=== PATIENT | male | born 1995 | race Two or more races ===

== ENCOUNTER 2022-03-18 10:30 | Emergency (ER) | payer MEDICAID ==
[~2022-03-18] VITALS: Ht 170.2 cm; Wt 123.8 kg
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
--- NOTE | 2022-03-18 10:41 | NUR ---
DR VASQUEZ AT BEDSIDE
[2022-03-18] MEDS ORDERED: ONDANSETRON HCL/PF 4 MG/2 ML VIAL ONE ×2 (10:47→12:25)
[2022-03-18 10:59] LABS: BASOPHILS # (AUTO) 0.1 K/uL (0.0-0.2); BASOPHILS % (AUTO) 0.8 % (0.0-2.0); EOSINOPHILS % (AUTO) 2.7 % (0.0-6.0); HEMATOCRIT 42 % (39-51); HEMOGLOBIN 13.8 g/dL (13.5-17.5); LYMPHOCYTES # (AUTO) 2.7 K/uL (0.8-4.8); LYMPHOCYTES % (AUTO) 38.8 % (20.0-44.0); MEAN CORPUSCULAR HGB CONC 33 g/dl (31.0-36.0); MEAN CORPUSCULAR VOLUME 81 fL (80-96); MONOCYTES # (AUTO) 0.4 K/uL (0.1-1.30); NEUTROPHILS # (AUTO) 3.6 K/uL (1.8-8.9); NEUTROPHILS % (AUTO) 51.7 % (43.0-81.0); PLATELET COUNT (AUTO) 159 K/uL (150-450); RED BLOOD CELL COUNT(AUTO) 5.17 MIL/uL (4.5-6.0); WHITE BLOOD COUNT (AUTO) 6.9 K/uL (4.3-11.0)
[2022-03-18] MEDS ORDERED: ONDANSETRON HCL/PF 4 MG/2 ML VIAL IVP ONE (11:00)
[2022-03-18] MEDS ORDERED: IV NS 0.9% 1,000 ML BAG IV ONE (11:00)
[2022-03-18 11:16] LABS: ALBUMIN 3.3 g/dL (3.4-5.0); BILIRUBIN,DIRECT 0.1 mg/dL (0.0-0.2); BILIRUBIN,TOTAL 0.3 mg/dL (0.2-1.0); CALCIUM, SERUM 8.5 mg/dL (8.5-10.1); CREATININE 0.8 mg/dL (0.6-1.3); POTASSIUM 3.7 mmol/L (3.5-5.1); TOTAL PROTEIN, SERUM 6.9 g/dL (6.4-8.2)
[2022-03-18] MEDS ORDERED: ONDANSETRON HCL/PF - ER 4 MG/2 ML VIAL IV ONE (12:30)
[2022-03-18] MEDS ORDERED: ONDA4TAB5 PO (13:22)
--- NOTE | 2022-03-18 13:41 | NUR ---
IV removed. Catheter intact and site benign. Pressure and 4x4 applied to site. No bleeding noted.Patient discharged to home in stable condition. Written and verbal after care instructions given. Patient verbalizes understanding of instruction.
[2022-03-18 13:43] VITALS: BP 128/76
== END 2022-03-18 13:43 | disposition home or self-care (01) ==
LOC: ER 10:35
DX: R11.2 Nausea with vomiting, unspecified (principal); F17.200 Nicotine dependence, unspecified, uncomplicated; Z88.0 Allergy status to penicillin; Z60.2 Problems related to living alone
CPT/HCPCS: 99284; 96374; 96361; 96376; 85025; 80048; 83690; 80076; 36415; J2405 ×2; J7030

== ENCOUNTER 2022-03-19 18:53 | Emergency (ER) | payer MEDICAID ==
[~2022-03-19] VITALS: Ht 170.2 cm; Wt 123.8 kg
[~2022-03-19 18:53] MED LIST: ONDA4TAB5 PO
[2022-03-19] MEDS ORDERED: IV NS 0.9% 1,000 ML BAG IV ONE (19:30)
[2022-03-19] MEDS ORDERED: ONDANSETRON HCL/PF 4 MG/2 ML VIAL IVP ONE (19:30)
--- NOTE | 2022-03-19 19:59 | NUR ---
LAB AT BEDSIDE FOR BLOOD DRAW
[2022-03-19] MEDS ORDERED: ONDANSETRON HCL/PF 4 MG/2 ML VIAL ONE (20:14)
[2022-03-19 20:25] LABS: BASOPHILS # (AUTO) 0.1 K/uL (0.0-0.2); BASOPHILS % (AUTO) 0.6 % (0.0-2.0); HEMATOCRIT 43 % (39-51); HEMOGLOBIN 14.3 g/dL (13.5-17.5); LYMPHOCYTES # (AUTO) 3.3 K/uL (0.8-4.8); LYMPHOCYTES % (AUTO) 37.3 % (20.0-44.0); MEAN CORPUSCULAR HGB CONC 33 g/dl (31.0-36.0); MEAN CORPUSCULAR VOLUME 80 fL (80-96); MONOCYTES # (AUTO) 0.8 K/uL (0.1-1.30); MONOCYTES % (AUTO) 8.5 % (2.0-12.0); NEUTROPHILS # (AUTO) 4.6 K/uL (1.8-8.9); NEUTROPHILS % (AUTO) 51.6 % (43.0-81.0); PLATELET COUNT (AUTO) 177 K/uL (150-450); RED BLOOD CELL COUNT(AUTO) 5.41 MIL/uL (4.5-6.0)
[2022-03-19 20:37] LABS: CREATININE 0.9 mg/dL (0.6-1.3); POTASSIUM 3.9 mmol/L (3.5-5.1)
[2022-03-19 20:46] LABS: ALBUMIN 3.8 g/dL (3.4-5.0); BILIRUBIN,DIRECT 0.1 mg/dL (0.0-0.2); BILIRUBIN,TOTAL 0.2 mg/dL (0.2-1.0); TOTAL PROTEIN, SERUM 7.8 g/dL (6.4-8.2)
[2022-03-19 21:29] LABS: BILIRUBIN,URINE NEGATIVE (NEGATIVE); COLOR,URINE YELLOW (YELLOW); LEUKOCYTE ESTERASE ,URINE NEGATIVE (NEGATIVE); NITRITE, URINE NEGATIVE (NEGATIVE); PROTEIN,URINE NEGATIVE (NEGATIVE); UGLUCOSE NEGATIVE (NEGATIVE); UROBILINOGEN,URINE 0.2 EU/dL (0.2)
[2022-03-19 22:44] VITALS: BP 118/77
--- NOTE | 2022-03-19 22:44 | NUR ---
Patient discharged to home in stable condition. Written and verbal after care instructions given. Patient verbalizes understanding of instruction.IV removed. Catheter intact and site benign. Pressure and 4x4 applied to site. No bleeding noted.
== END 2022-03-19 22:44 | disposition home or self-care (01) ==
LOC: ER 18:56
DX: R10.9 Unspecified abdominal pain (principal); R11.2 Nausea with vomiting, unspecified; R19.7 Diarrhea, unspecified; F17.200 Nicotine dependence, unspecified, uncomplicated; Z88.0 Allergy status to penicillin; Z60.2 Problems related to living alone; Z79.899 Other long term (current) drug therapy
CPT/HCPCS: 99283; 96374; 96361; 85025; 80048; 83690; 80076; 81003; 36415; J2405; J7030

== ENCOUNTER 2022-11-06 19:56 | Emergency (ER) | payer BC, OTHER ==
[~2022-11-06] VITALS: Ht 167.6 cm; Wt 117.9 kg
--- NOTE | 2022-11-06 20:13 | NUR ---
BIBSELF FROM HOME C/O SORE THROAT X4 DAYS, EAR PAIN, COLD LIKE SYMPTOMS. PT AAOX4, PLACED IN BED, AWAITING MD MCKINNON.
[2022-11-06] MEDS ORDERED: CLINDAMYCIN HCL 150 MG CAPSULE ONE (20:42)
[2022-11-06] MEDS ORDERED: IBUPROFEN 600 MG TABLET ONE (20:42)
[2022-11-06] MEDS ORDERED: ALBU8.5H8 INH (20:50)
[2022-11-06] MEDS ORDERED: CLIN300C12 PO (20:50)
--- NOTE | 2022-11-06 20:54 | NUR ---
Patient discharged to home in stable condition. Written and verbal after care instructions given. Patient verbalizes understanding of instruction.
[2022-11-06 20:58] VITALS: BP 129/88; TEMP 98.6
[2022-11-06] MEDS ORDERED: IBUPROFEN 600 MG TABLET PO ONE (21:00)
[2022-11-06] MEDS ORDERED: CLINDAMYCIN HCL 150 MG CAPSULE PO ONE (21:00)
== END 2022-11-06 20:59 | disposition home or self-care (01) ==
LOC: ER 19:58
DX: J02.0 Streptococcal pharyngitis (principal); F17.210 Nicotine dependence, cigarettes, uncomplicated; Z88.0 Allergy status to penicillin; Z79.899 Other long term (current) drug therapy

== ENCOUNTER 2022-11-30 23:12 | Emergency (ER) | payer BC, OTHER ==
[~2022-11-30 23:12] MED LIST changes: +ALBU8.5H8 INH; +CLIN300C12 PO
[2022-12-01] MEDS ORDERED: CYCL5TAB PO (07:31)
== END 2022-12-01 01:30 | disposition left against medical advice (07) ==
LOC: ER 23:39
DX: Z53.21 Procedure and treatment not carried out due to patient leaving prior to being seen by health care provider (principal)

== ENCOUNTER 2022-12-01 03:19 | Emergency (ER) | payer BC, OTHER ==
[~2022-12-01] VITALS: Ht 170.2 cm; Wt 131.5 kg
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
--- NOTE | 2022-12-01 04:55 | NUR ---
pt taken to ct via wheelchair
[2022-12-01] MEDS ORDERED: IBUPROFEN 400 MG TABLET ONE (05:03)
[2022-12-01] MEDS: IBUPROFEN 400 MG TABLET PO ONE (05:36)
--- NOTE | 2022-12-01 07:30 | NUR ---
PATIENT IS COMFORTABLE SLEEPING AT BED.NO DISCOMFORT.
[2022-12-01] MEDS ORDERED: CYCL5TAB PO (07:31)
--- NOTE | 2022-12-01 07:40 | NUR ---
EXCUSE FROM WORK GIVEN TO PATIENT REQUEST FOR ONE DAY.
--- NOTE | 2022-12-01 07:44 | NUR ---
Patient discharged to home in stable condition. Written and verbal after care instructions given. Patient verbalizes understanding of instruction.
[2022-12-01 07:47] VITALS: BP 128/78; TEMP 98.3; O2SAT 99
== END 2022-12-01 07:48 | disposition home or self-care (01) ==
LOC: ER 03:34
DX: S09.8XXA Other specified injuries of head, initial encounter (principal); M54.2 Cervicalgia; M25.512 Pain in left shoulder; M54.50 Low back pain, unspecified; M25.572 Pain in left ankle and joints of left foot; F17.200 Nicotine dependence, unspecified, uncomplicated; Z60.2 Problems related to living alone; Z88.0 Allergy status to penicillin; Z79.899 Other long term (current) drug therapy; V89.2XXA Person injured in unspecified motor-vehicle accident, traffic, initial encounter; Y93.89 Activity, other specified; Y92.89 Other specified places as the place of occurrence of the external cause; Y99.8 Other external cause status
CPT/HCPCS: 70450-TC; 72125-TC; 72131-TC; 73030-TC; 73610-TC

== ENCOUNTER 2024-11-25 23:42 | Emergency (ER) | payer BC, MEDICAID, OTHER ==
[~2024-11-25] VITALS: Ht 170.2 cm; Wt 131.5 kg
[~2024-11-25 23:42] MED LIST changes: +CYCL5TAB PO
[2024-11-26] MEDS ORDERED: ASPIRIN EC 81 MG TABLET.DR PO ONE (01:08)
[2024-11-26] MEDS ORDERED: ONDANSETRON HCL/PF 4 MG/2 ML VIAL ONE (01:25)
[2024-11-26] MEDS: ASPIRIN 81 MG TAB.CHEW PO ONE (01:31)
[2024-11-26 01:32] LABS: PLATELET COUNT (AUTO) 209 K/uL (150-450); RED BLOOD CELL COUNT(AUTO) 5.01 MIL/uL (4.5-6.0); RED CELL DISTRIBUTION WIDTH 15.6 % (11.5-15.0); WHITE BLOOD COUNT (AUTO) 8.5 K/uL (4.3-11.0)
[2024-11-26] MEDS: ONDANSETRON HCL/PF 4 MG/2 ML VIAL IV ONE (01:32)
[2024-11-26 01:40] LABS: CALCIUM, SERUM 8.8 mg/dL (8.5-10.1); CREATININE 0.7 mg/dL (0.6-1.3); SODIUM SERUM 140 mmol/L (136-145); UREA NITROGEN, BLOOD 10 mg/dL (7-18)
[2024-11-26 01:45] LABS: INR 1.0 (0.91-1.10)
[2024-11-26] MEDS ORDERED: ONDA4TAB5 PO (01:59)
[2024-11-26 02:15] LABS: AMPHETAMINE, URINE NEGATIVE (NEGATIVE); BARBITURATE, URINE NEGATIVE (NEGATIVE); BENZODIAZEPINE, URINE NEGATIVE (NEGATIVE); CANNABINOID, URINE NEGATIVE (NEGATIVE); OPIATE, URINE NEGATIVE (NEGATIVE)
[2024-11-26 02:17] LABS: COCCAINE, URINE POSITIVE (NEGATIVE)
[2024-11-26 02:26] VITALS: BP 116/68; TEMP 98.2; O2SAT 98
== END 2024-11-26 02:26 | disposition home or self-care (01) ==
LOC: ER 23:46
DX: R07.89 Other chest pain (principal); F19.10 Other psychoactive substance abuse, uncomplicated; E66.01 Morbid (severe) obesity due to excess calories; F17.200 Nicotine dependence, unspecified, uncomplicated; Z88.0 Allergy status to penicillin; Z60.2 Problems related to living alone; Z79.899 Other long term (current) drug therapy
CPT/HCPCS: 99285; 96374; 71045; 93005; 85025; 80048; 36415; 84484; 85730; 80307; J2405